=== PATIENT | female | born 1965 | race Caucasian/White ===

== ENCOUNTER → 2019-03-06 | Outpatient (CLI) | payer OTHER ==
--- NOTE | 2019-03-07 09:05 | KCIC ---
Thyroid ultrasound, 03/06/2019: HISTORY: Enlarged thyroid gland The right lobe of the gland measures 7.7 x 3.1 x 3.5 cm while the left lobe of the gland measures 8.5 x 3.9 x 4.1 cm. The thyroid echo pattern is heterogeneous with multiple bilateral nodules evident. These nodules tended be confluent with very little normal appearing thyroid tissue evident. The largest nodule on the right lies in the lower pole and measures 4.7 x 2.2 x 3.3 cm. It is solid with internal color flow. It is heterogeneous with mixed hyperechoic and mildly hypoechoic internal foci. It is wider than tall. Some of its margins are smooth and well-defined. No internal calcifications are seen. There is a solid nodule in the mid to lower aspect of the left lobe of the gland which demonstrates similar sonographic characteristics. It measures 4.3 x 3.1 x 3.5 cm. There is a 1.2 cm smooth hypoechoic nodule in the upper pole of the right lobe of the gland without demonstrable internal color flow. Several other smaller solid nodules are present in both lobes of the gland. No definite nodular calcifications are seen. IMPRESSION: Enlarged multinodular thyroid gland as described above. Ultrasound-guided biopsy of the dominant solid nodules in both lobes is suggested for further evaluation. Depending on the biopsy results, the others smaller nodules can be followed sonographically. Electronically signed by: Juaquin Machado MD (03/07/2019 9:02 AM) [facility]
== END | disposition home or self-care (01) ==
LOC: KCIC US 15:28
PROVIDERS: ATTEND Nurse Practitioner Family
DX: E04.2 Nontoxic multinodular goiter (principal); E04.9 Nontoxic goiter, unspecified
CPT/HCPCS: 76536

== ENCOUNTER → 2019-06-04 | Outpatient (CLI) | payer OTHER ==
--- NOTE | 2019-06-04 12:51 | KCIC ---
EXAM: Chest, 2 views. HISTORY: Bronchitis. Cough. COMPARISON: None. FINDINGS: 2 views the chest are obtained. There is no infiltrate, pleural effusion or pneumothorax. The heart is normal in size. There is a small nodular opacity overlying the right upper lobe due to a prominent anterior rib end. There is linear atelectasis or scarring within the anterior right middle lobe. IMPRESSION: No acute pulmonary finding. Electronically signed by: Migdalia Clark MD (06/04/2019 12:48 PM) [place] [id number]
== END | disposition home or self-care (01) ==
LOC: KCIC 11:23
PROVIDERS: ATTEND Nurse Practitioner Family
DX: R91.1 Solitary pulmonary nodule (principal); J40 Bronchitis, not specified as acute or chronic
CPT/HCPCS: 71046

== ENCOUNTER → 2020-04-29 | Outpatient (CLI) | payer OTHER ==
--- NOTE | 2020-04-29 16:11 | KCIC ---
EXAM: Right upper extremity venous Doppler. HISTORY: Cephalic vein superficial venous thrombosis status post IV placement, status post anticoagulation. COMPARISON: None. FINDINGS: Grayscale and Doppler analysis of the right upper extremity deep venous system was performed with graded compression and augmentation. The internal jugular, subclavian, axillary, brachial, basilic, cephalic, radial and ulnar veins were assessed. Superficial venous thrombus is noted focally in the cephalic vein in the antecubital fossa at the site of prior IV placement. The remainder of the cephalic vein appears patent. There is no evidence of deep venous thrombosis. IMPRESSION: 1. Persistent focal superficial venous thrombus in the right cephalic vein at the antecubital fossa. 2. No evidence of deep venous thrombosis. Electronically signed by: Sofía Mejía MD (04/29/2020 4:08 PM) [id number]
== END ==
LOC: KCIC US 15:05
PROVIDERS: ATTEND Nurse Practitioner Family
DX: I82.611 Acute embolism and thrombosis of superficial veins of right upper extremity (principal)
CPT/HCPCS: 93971